=== PATIENT | male | born 1960 | race Caucasian/White ===

== ENCOUNTER 2017-07-24 14:27 | Outpatient (CLI) | payer OTHER | END 2017-07-24 14:53 | disposition home or self-care (01) | LOC: RAD 14:27 | DX: S89.90XA Unspecified injury of unspecified lower leg, initial encounter (principal) ==

== ENCOUNTER 2017-08-24 12:02 | Outpatient (CLI) | payer OTHER ==
[~2017-08-24] VITALS: Ht 182.9 cm; Wt 95.3 kg
== END 2017-08-24 12:30 | disposition home or self-care (01) ==
LOC: OFIC 805 12:02
DX: H61.23 Impacted cerumen, bilateral (principal); H90.3 Sensorineural hearing loss, bilateral

== ENCOUNTER 2018-01-07 16:07 | Outpatient (CLI) | payer OTHER | END 2018-01-07 17:00 | disposition home or self-care (01) | LOC: TOM 16:07 | DX: R51 Headache (principal) ==

== ENCOUNTER → 2018-06-11 | Outpatient (CLI) | payer OTHER | END | disposition home or self-care (01) | LOC: SONOGRAMA 09:38 → MAMO-SONO 10:15 | DX: R31.29 Other microscopic hematuria (principal) ==

== ENCOUNTER 2019-11-23 12:33 | Outpatient (CLI) | payer OTHER | END 2019-11-23 12:40 | disposition home or self-care (01) | LOC: SONOGRAMA 12:33 → MAMO-SONO 13:45 | PROVIDERS: ATTEND Urology | DX: N20.0 Calculus of kidney (principal) ==

== ENCOUNTER 2020-12-27 07:47 | Outpatient (CLI) | payer OTHER | END 2020-12-27 07:56 | disposition home or self-care (01) | LOC: SONOGRAMA 07:47 → MAMO-SONO 08:00 | PROVIDERS: ATTEND Urology | DX: N20.0 Calculus of kidney (principal) ==

== ENCOUNTER → 2021-03-21 06:29 | Outpatient (CLI) | payer OTHER | END | disposition home or self-care (01) | LOC: LAB 06:29 | PROVIDERS: ATTEND Urology | DX: R31.1 Benign essential microscopic hematuria (principal) ==

== ENCOUNTER 2021-03-21 08:41 | Outpatient (CLI) | payer OTHER | END 2021-03-21 09:15 | disposition home or self-care (01) | LOC: TOM 08:41 | PROVIDERS: ATTEND Urology | DX: Q44.6 Cystic disease of liver (principal); Q61.01 Congenital single renal cyst; R31.21 Asymptomatic microscopic hematuria; N40.1 Benign prostatic hyperplasia with lower urinary tract symptoms ==

== ENCOUNTER 2022-04-13 08:59 | Outpatient (CLI) | payer OTHER | END 2022-04-13 09:10 | disposition home or self-care (01) | LOC: SONOGRAMA 08:59 | PROVIDERS: ATTEND Urology | DX: R31.21 Asymptomatic microscopic hematuria (principal); R33.9 Retention of urine, unspecified; N40.1 Benign prostatic hyperplasia with lower urinary tract symptoms ==

== ENCOUNTER 2023-03-10 12:28 | Outpatient (CLI) | payer OTHER | END 2023-03-10 12:34 | disposition home or self-care (01) | LOC: SONOGRAMA 12:28 | PROVIDERS: ATTEND Urology | DX: R31.21 Asymptomatic microscopic hematuria (principal) ==

== ENCOUNTER 2024-05-23 08:21 | Outpatient (CLI) | payer OTHER | END 2024-05-23 08:24 | disposition home or self-care (01) | LOC: SONOGRAMA 08:21 | PROVIDERS: ATTEND Family Medicine Geriatric Medicine | DX: R39.12 Poor urinary stream (principal) ==